=== PATIENT | female | born 1945 | race Caucasian/White ===

== ENCOUNTER → 2016-09-18 | Outpatient (CLI) | payer OTHER ==
--- NOTE | 2016-09-18 14:07 | DX ---
Chest, Two Views at 1258 hours History: Right-sided chest pain post fall. Comparison: March 2015 Findings: Cardiac silhouette is within normal range. Limited PA view of the chest demonstrates no def inite right rib fracture. No pneumonia, congestive heart failure, pleural effusion, or pneumothorax. Impression: 1. No acute pulmonary disease. 2. Consider dedicated right rib series for further evaluation if clinically indicated.
== END ==
LOC: FIMAGING 12:51
PROVIDERS: ATTEND Physician Assistant Surgical
DX: R07.81 Pleurodynia (principal)

== ENCOUNTER → 2016-12-02 | Outpatient (CLI) | payer OTHER | LOC: FIMAGING 12:01 | PROVIDERS: ATTEND Physician Assistant | DX: S62.525A Nondisplaced fracture of distal phalanx of left thumb, initial encounter for closed fracture (principal); M25.842 Other specified joint disorders, left hand ==

== ENCOUNTER 2017-03-17 17:09 | Emergency (ER) | payer OTHER ==
[2017-03-17 17:14] VITALS: O2SAT 100
--- NOTE | 2017-03-17 17:41 | EDPHY ---
H & P Stated Complaint: heart palp & htn HPI/ROS: HPI CHIEF COMPLAINT: Hypertension, palpitation, recent medication change HISTORY OF PRESENT ILLNESS: This patient very pleasant 71-year-old female she does have significant past medical history for hypertension she typically takes Benicar with HCTZ however last week her primary care doctor changed her to just straight Benicar without HCTZ. She noticed over the past 3 days she has had some feet swelling. Also noticed some palpitations. No chest pain no shortness of breath. No headache. She states she was at work and noticed that her blood pressure was slightly high 160s over 100. She became concerned she called her primary care doctor was told to come to the emergency room for evaluation given her cerebral aneurysm history. Here in emergency room she appears well nontoxic she has a normal neurological exam. She denies chest pain or shortness of breath. Patient tells me specifically she would like to be placed back on her diuretic. She tried to call primary care doctor to get her do this however was referred to the emergency room by the nurse at the doctor's office. Past Medical History: Hypertension, cerebral aneurysm Past Surgical History: Aneurysm cerebral, clipping and coiling Social History: Denies daily use of drugs alcohol tobacco products Family History: Noncontributory ROS REVIEW OF SYSTEMS: A comprehensive 10 point review of systems is otherwise negative aside from elements mentioned in the history of present illness. Exam Constitutional appears well nontoxic triage nursing summary reviewed, vital signs reviewed, awake/alert. Eyes normal conjunctivae and sclera, EOMI, PERRLA. HENT normal inspection, atraumatic, moist mucus membranes, no epistaxis, neck supple/ no meningismus, no raccoon eyes. Respiratory clear to auscultation bilaterally, normal breath sounds, no respiratory distress, no wheezing. Cardiovascular rate normal, regular rhythm, no murmur, no edema, distal pulses normal. Gastrointestinal soft, non-tender, no rebound, no guarding, normal bowel sounds, no distension, no pulsatile mass. Genitourinary no CVA tenderness. Musculoskeletal there is no significant lower extremity swelling on exam, no midline vertebral tenderness, full range of motion, no calf swelling, no tenderness of extremities, no meningismus, good pulses, neurovascularly intact. Skin pink, warm, & dry, no rash, skin atraumatic. Neurologic awake, alert and oriented x 3, AAOx3, moves all 4 extremities equally, motor intact, sensory intact, CN II-XII intact, normal cerebellar, normal vision, normal speech. Psychiatric normal mood/affect. Heme/Lymph/Immune no lymphadenopathy. Differential Diagnosis: Includes but is not limited to in a particular order, electrolyte disturbance, hypertension, cardiac arrhythmia. Medical Decision Making: Plan for this patient basic blood work including troponin, EKG. Check kidney function. 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 May need to be placed back on HCTZ. Patient is requesting this. Re-evaluation: EKG interpretation by me on record in [employer] system. Impression time of EKG 1745, this is sinus rhythm rate of 61 T-wave inversions V1. Flat T-wave in V2. Otherwise unremarkable EKG no acute ischemia. When I compare this EKG to her old EKG dated 04/02/2015 very similar morphology. 1836: Patient resting comfortably. Recheck vitals blood pressure is currently 115/81. She has no complaints denies chest pain or shortness of breath. She is requesting a dose of HCTZ here which I will provide for her. She is also requesting that I switch her back to Benicar with HCTZ. I will give her prescription for this. I do recommend she notified her primary care doctor that we have switched her back to Benicar with HCTZ from plain Benicar. This is at her request. She should notify her primary care doctor about this. Source: Patient - Personal History Current Tetanus/Diphtheria Vaccine: Yes Current Tetanus Diphtheria and Acellular Pertussis (TDAP): Yes - Medical/Surgical History Hx Asthma: Yes Hx Chronic Respiratory Disease: No Hx Diabetes: No Hx Cardiac Disease: No Hx Renal Disease: No Hx Cirrhosis: No Hx Alcoholism: No Hx HIV/AIDS: No Hx Splenectomy or Spleen Trauma: No Other PMH: ruptured cerebral aneurysm. reflux - Social History Smoking Status: Never smoked Constitutional: Initial Vital Signs Temperature (C) 36.6 C 03/17/17 17:12 Heart Rate 72 03/17/17 17:12 Respiratory Rate 16 03/17/17 17:12 Blood Pressure 163/95 H 03/17/17 17:12 O2 Sat (%) 100 03/17/17 17:12 O2 Delivery Mode Room Air Allergies/Adverse Reactions: Sulfa (Sulfonamide Antibiotics) Allergy (Verified 04/02/15 09:12) Home Medications: Medication Instructions Recorded Beclomethasone Qvar 40 [Qvar 40 1 puffs IH BID 04/02/15 (*)] Olmesartan/Hydrochlorothiazide 1 each PO DAILY 04/02/15 [Benicar Hct 40-12.5 mg Tablet] traZODone [traZODONE 50MG (*)] 50 mg PO HS 04/02/15 Ibuprofen [Motrin (*)] 600 mg PO TID PRN #0 tab 04/03/15 Olmesartan/Hydrochlorothiazide 1 each PO DAILY #30 tablet 03/17/17 [Benicar Hct 40-12.5 mg Tablet] Medical Decision Making - Data Points Laboratory Results: Laboratory Results 03/17/17 17:55 03/17/17 17:55 03/17/17 03/17/17 17:55 17:55 WBC 5.29 10^3/uL 10^3/uL (3.80-9.50) RBC 3.74 10^6/uL L 10^6/uL (4.18-5.33) Hgb 11.9 g/dL L g/dL (12.6-16.3) Hct 34.5 % L % (38.0-47.0) MCV 92.2 fL fL (81.5-99.8) MCH 31.8 pg pg (27.9-34.1) MCHC 34.5 g/dL g/dL (32.4-36.7) RDW 12.2 % % (11.5-15.2) Plt Count 183 10^3/uL 10^3/uL (150-400) MPV 9.3 fL fL (8.7-11.7) Neut % (Auto) 41.1 % % (39.3-74.2) Lymph % (Auto) 44.0 % % (15.0-45.0) [place] % (Auto) 8.3 % % (4.5-13.0) Eos % (Auto) 6.0 % % (0.6-7.6) Baso % (Auto) 0.4 % % (0.3-1.7) Nucleat RBC Rel Count 0.0 % % (0.0-0.2) Absolute Neuts (auto) 2.17 10^3/uL 10^3/uL (1.70-6.50) Absolute Lymphs (auto) 2.33 10^3/uL 10^3/uL (1.00-3.00) Absolute Monos (auto) 0.44 10^3/uL 10^3/uL (0.30-0.80) Absolute Eos (auto) 0.32 10^3/uL 10^3/uL (0.03-0.40) Absolute Basos (auto) 0.02 10^3/uL 10^3/uL (0.02-0.10) Absolute Nucleated RBC 0.00 10^3/uL 10^3/uL (0-0.01) Immature Gran % 0.2 % % (0.0-1.1) Immature Gran # 0.01 10^3/uL 10^3/uL (0.00-0.10) Sodium 141 mEq/L mEq/L (134-144) Potassium 4.0 mEq/L mEq/L (3.3-5.0) Chloride 107 mEq/L mEq/L (97-110) Carbon Dioxide 23 mEq/l mEq/l (22-31) Anion Gap 11 mEq/L mEq/L (8-16) BUN 17 mg/dL mg/dL (7-23) Creatinine 0.8 mg/dL mg/dL (0.6-1.0) Estimated GFR > 60 Glucose 83 mg/dL mg/dL (70-100) Calcium 9.1 mg/dL mg/dL (8.5-10.4) Troponin I < 0.012 ng/mL ng/mL (0-0.034) Departure - Departure Disposition: Home, Routine, Self-Care Clinical Impression: Hypertension Qualifiers: Hypertension type: unspecified Qualified Code(s): I10 - Essential (primary) hypertension Condition: Good Instructions: Hypertension (ED) Additional Instructions: 1. Watch blood pressure closely. 2. I have switched you back to your Benicar with HCTZ. Please notify your primary care doctor. Referrals: [facility] [Other] - As per Instructions Prescriptions: Olmesartan/Hydrochlorothiazide [Benicar Hct 40-12.5 mg Tablet] 1 each PO DAILY # 30 tablet
--- NOTE | 2017-03-17 17:48 | CPEKG ---
Heart Rate: 61 RR Interval: 984 P-R Interval: 164 QRSD Interval: 84 QT Interval: 428 QTC Interval: 431 P [place]: 40 QRS [place]: 42 T Wave [place]: 68 EKG Severity - BORDERLINE ECG - EKG Impression: SINUS RHYTHM EKG Impression: BORDERLINE T ABNORMALITIES, ANT-LAT LEADS Electronically Signed By: Keven Becerra 18-Mar-2017 07:52:53
[2017-03-17 18:04] LABS: % IMMATURE GRANULYOCYTES 0.2 % (0.0-1.1); ABSOLUTE IMMATURE GRANULOCYTES 0.01 10^3/uL (0.00-0.10); ADD DIFF? NO; ADD MORPH? NO; ADD SCAN? NO; ATYPICAL LYMPHOCYTE FLAG 20 (0-99); FRAGMENT RBC FLAG 0 (0-99); HEMATOCRIT 34.5 % (38.0-47.0); HEMOGLOBIN 11.9 g/dL (12.6-16.3); LEFT SHIFT FLG 0 (0-99); LIPEMIA HEMOLYSIS FLAG 90 (0-99); MEAN CELL HEMOGLOBIN 31.8 pg (27.9-34.1); MEAN CELL HEMOGLOBIN CONCENTR. 34.5 g/dL (32.4-36.7); MEAN CELL VOLUME 92.2 fL (81.5-99.8); MEAN PLATELET VOLUME 9.3 fL (8.7-11.7); PLATELET CLUMPS FLAG 0 (0-99); PLATELET COUNT 183 10^3/uL (150-400); RED BLOOD CELL COUNT 3.74 10^6/uL (4.18-5.33); RED CELL DISTRIBUTION WIDTH 12.2 % (11.5-15.2)
[2017-03-17 18:13] LABS: ANION GAP 11 mEq/L (8-16); CALCIUM 9.1 mg/dL (8.5-10.4); CARBON DIOXIDE 23 mEq/l (22-31); CHLORIDE 107 mEq/L (97-110); CREATININE 0.8 mg/dL (0.6-1.0); GLOMERULAR FILTRATION RATE > 60; GLUCOSE 83 mg/dL (70-100); SODIUM 141 mEq/L (134-144)
[2017-03-17 18:24] LABS: TROPONIN I < 0.012 ng/mL (0-0.034)
[2017-03-17] MEDS ORDERED: HYDROCHLOROTHIAZIDE 25 MG TAB PO SCH (18:45)
[2017-03-17 18:48] VITALS: BP 115/81; PULSE 58; RESP 95; TEMP 98.2
== END 2017-03-17 18:57 | disposition home or self-care (01) ==
DX: I10 Essential (primary) hypertension (principal); J45.909 Unspecified asthma, uncomplicated